=== PATIENT | female | born 1975 | race Two or more races ===

== ENCOUNTER 2017-10-31 13:39 | Outpatient (CLI) | payer OTHER | END 2017-10-31 13:46 | disposition home or self-care (01) | LOC: LAB 13:39 | DX: R10.9 Unspecified abdominal pain (principal); R82.79 Other abnormal findings on microbiological examination of urine ==

== ENCOUNTER → 2017-10-31 | Outpatient (CLI) | payer OTHER | END | disposition home or self-care (01) | LOC: PPHC 12:03 | DX: R10.32 Left lower quadrant pain (principal) ==

== ENCOUNTER 2017-12-02 13:34 | Outpatient (CLI) | payer OTHER | END 2017-12-02 13:40 | disposition home or self-care (01) | LOC: SONOGRAMA 13:34 | DX: R10.2 Pelvic and perineal pain (principal) ==

== ENCOUNTER 2017-12-23 05:30 | Day surgery (SDC) | payer OTHER | END 2017-12-23 12:40 | disposition home or self-care (01) | LOC: CIR.AMB 05:30 | DX: N84.0 Polyp of corpus uteri (principal) ==

== ENCOUNTER 2018-01-31 14:25 | Outpatient (CLI) | payer OTHER | END 2018-01-31 14:43 | disposition home or self-care (01) | LOC: RAD 14:25 | DX: M54.2 Cervicalgia (principal) ==

== ENCOUNTER 2019-06-04 11:27 | Outpatient (CLI) | payer OTHER | END 2019-06-04 11:31 | disposition home or self-care (01) | LOC: LAB 11:27 | DX: J11.1 Influenza due to unidentified influenza virus with other respiratory manifestations (principal); J20.0 Acute bronchitis due to Mycoplasma pneumoniae ==

== ENCOUNTER 2019-09-25 09:52 | Outpatient (CLI) | payer OTHER | END 2019-09-25 10:32 | disposition home or self-care (01) | LOC: LAB 09:52 | DX: E78.49 Other hyperlipidemia (principal); E55.9 Vitamin D deficiency, unspecified; Z00.00 Encounter for general adult medical examination without abnormal findings; N39.0 Urinary tract infection, site not specified; R42 Dizziness and giddiness ==

== ENCOUNTER 2019-09-26 11:29 | Outpatient (CLI) | payer OTHER | END 2019-09-26 11:32 | disposition home or self-care (01) | LOC: MAMO-SONO 11:29 | DX: Z12.31 Encounter for screening mammogram for malignant neoplasm of breast (principal); Z87.898 Personal history of other specified conditions; N64.4 Mastodynia ==

== ENCOUNTER 2019-09-27 15:35 | Outpatient (CLI) | payer OTHER | END 2019-09-27 15:38 | disposition home or self-care (01) | LOC: SONOGRAMA 15:35 | DX: N39.0 Urinary tract infection, site not specified (principal); N20.0 Calculus of kidney; M54.5 Low back pain ==

== ENCOUNTER → 2019-12-24 | Outpatient (CLI) | payer OTHER | END | disposition home or self-care (01) | LOC: TOM 13:59 | PROVIDERS: ATTEND General Practice | DX: R10.2 Pelvic and perineal pain (principal); R10.30 Lower abdominal pain, unspecified ==

== ENCOUNTER → 2019-12-26 07:18 | Outpatient (CLI) | payer OTHER | END | disposition home or self-care (01) | LOC: LAB 07:18 | PROVIDERS: ATTEND General Practice | DX: R10.30 Lower abdominal pain, unspecified (principal); R10.2 Pelvic and perineal pain; Z13.6 Encounter for screening for cardiovascular disorders; Z00.8 Encounter for other general examination ==

== ENCOUNTER → 2019-12-26 | Outpatient (CLI) | payer OTHER | END | disposition home or self-care (01) | LOC: RAD 07:37 | PROVIDERS: ATTEND General Practice | DX: M46.47 Discitis, unspecified, lumbosacral region (principal) ==

== ENCOUNTER → 2019-12-27 | Outpatient (CLI) | payer OTHER | END | disposition home or self-care (01) | LOC: MRI 08:05 | PROVIDERS: ATTEND Internal Medicine Cardiovascular Disease | DX: M46.47 Discitis, unspecified, lumbosacral region (principal) | CPT/HCPCS: 72148 ==

== ENCOUNTER 2020-04-10 | Outpatient (CLI) | payer OTHER | END 2020-04-10 00:01 | disposition home or self-care (01) | LOC: PPH VACUNA | DX: Z23 Encounter for immunization (principal) ==

== ENCOUNTER 2020-04-21 10:51 | Outpatient (CLI) | payer OTHER | END 2020-04-21 10:56 | disposition home or self-care (01) | LOC: LAB 10:51 | PROVIDERS: ATTEND Internal Medicine Cardiovascular Disease | DX: E03.8 Other specified hypothyroidism (principal); I10 Essential (primary) hypertension; E78.2 Mixed hyperlipidemia; E11.9 Type 2 diabetes mellitus without complications ==

== ENCOUNTER → 2020-04-21 | Outpatient (CLI) | payer OTHER | END | disposition home or self-care (01) | LOC: TOM 11:21 | PROVIDERS: ATTEND Internal Medicine Cardiovascular Disease | DX: R51.0 Headache with orthostatic component, not elsewhere classified (principal); I10 Essential (primary) hypertension ==

== ENCOUNTER 2020-06-25 08:00 | Inpatient (IN) | payer OTHER ==
[~2020-06-25] VITALS: Ht 167.6 cm; Wt 85.7 kg
== END 2020-07-03 15:39 | disposition home or self-care (01) | DRG 743 ==
LOC: SURH 07-02 08:00 → OB/GYN 07-02 11:13 → O/R 07-02 11:13 → SURH 07-02 12:00 → OB/GYN 07-02 17:27
PROVIDERS: ADMIT Obstetrics & Gynecology; ATTEND Obstetrics & Gynecology
PROC: 0UT24ZZ Resection of Bilateral Ovaries, Percutaneous Endoscopic Approach (ICD-10-PCS; 2020-07-02)
PROC: 0UB74ZZ Excision of Bilateral Fallopian Tubes, Percutaneous Endoscopic Approach (ICD-10-PCS; 2020-07-02)
PROC: 0UT94ZZ Resection of Uterus, Percutaneous Endoscopic Approach (ICD-10-PCS; principal; 2020-07-02 12:00)
DX: N72 Inflammatory disease of cervix uteri (principal); N83.11 Corpus luteum cyst of right ovary; N83.8 Other noninflammatory disorders of ovary, fallopian tube and broad ligament; N84.0 Polyp of corpus uteri

== ENCOUNTER 2021-04-21 08:00 | Outpatient (CLI) | payer OTHER | END 2021-04-21 08:30 | disposition home or self-care (01) | LOC: PPH VACUNA 08:00 | PROVIDERS: ATTEND Emergency Medicine Pediatric Emergency Medicine | DX: Z23 Encounter for immunization (principal) ==

== ENCOUNTER 2021-06-19 11:29 | Outpatient (CLI) | payer OTHER | END 2021-06-19 11:39 | disposition home or self-care (01) | LOC: MRI 11:29 | PROVIDERS: ATTEND General Practice | DX: G44.89 Other headache syndrome (principal); R03.0 Elevated blood-pressure reading, without diagnosis of hypertension | CPT/HCPCS: 70552 ==

== ENCOUNTER 2021-08-11 08:00 | Outpatient (CLI) | payer OTHER | END 2021-08-11 08:30 | disposition home or self-care (01) | LOC: PPH VACUNA 08:00 | PROVIDERS: ATTEND Emergency Medicine Pediatric Emergency Medicine | DX: Z23 Encounter for immunization (principal) ==

== ENCOUNTER 2021-11-20 10:29 | Outpatient (CLI) | payer OTHER | END 2021-11-20 10:32 | disposition home or self-care (01) | LOC: LAB 10:29 | DX: U07.1 COVID-19 (principal) ==

== ENCOUNTER 2021-12-31 06:49 | Outpatient (CLI) | payer OTHER | END 2021-12-31 06:52 | disposition home or self-care (01) | LOC: LAB 06:49 | DX: I11.9 Hypertensive heart disease without heart failure (principal); D50.9 Iron deficiency anemia, unspecified; E78.5 Hyperlipidemia, unspecified; N39.0 Urinary tract infection, site not specified; E03.9 Hypothyroidism, unspecified; E55.9 Vitamin D deficiency, unspecified; R73.9 Hyperglycemia, unspecified; Z12.11 Encounter for screening for malignant neoplasm of colon ==

== ENCOUNTER 2021-12-31 07:45 | Outpatient (CLI) | payer OTHER | END 2021-12-31 07:53 | disposition home or self-care (01) | LOC: SONOGRAMA 07:45 | DX: R10.10 Upper abdominal pain, unspecified (principal); R10.2 Pelvic and perineal pain ==

== ENCOUNTER 2022-04-07 15:07 | Outpatient (CLI) | payer OTHER | END 2022-04-07 15:12 | disposition home or self-care (01) | LOC: PPH VACUNA 15:07 | PROVIDERS: ATTEND Emergency Medicine Pediatric Emergency Medicine | DX: Z23 Encounter for immunization (principal) ==

== ENCOUNTER 2022-06-22 06:39 | Outpatient (CLI) | payer OTHER | END 2022-06-22 06:52 | disposition home or self-care (01) | LOC: LAB 06:39 | PROVIDERS: ATTEND Internal Medicine Cardiovascular Disease | DX: I10 Essential (primary) hypertension (principal); E11.9 Type 2 diabetes mellitus without complications; E03.9 Hypothyroidism, unspecified; E78.2 Mixed hyperlipidemia; E55.9 Vitamin D deficiency, unspecified; N39.0 Urinary tract infection, site not specified ==

== ENCOUNTER 2022-07-13 06:45 | Outpatient (CLI) | payer OTHER | END 2022-07-13 06:47 | disposition home or self-care (01) | LOC: LAB 06:45 | PROVIDERS: ATTEND Obstetrics & Gynecology | DX: N97.0 Female infertility associated with anovulation (principal) ==

== ENCOUNTER 2022-07-14 13:07 | Outpatient (CLI) | payer OTHER | END 2022-07-14 13:26 | disposition home or self-care (01) | LOC: MAMO-SONO 13:07 | PROVIDERS: ATTEND Obstetrics & Gynecology | DX: N63.21 Unspecified lump in the left breast, upper outer quadrant (principal) ==

== ENCOUNTER → 2022-09-08 06:31 | Outpatient (CLI) | payer OTHER | END | disposition home or self-care (01) | LOC: LAB 06:31 | DX: I11.9 Hypertensive heart disease without heart failure (principal); R73.9 Hyperglycemia, unspecified; E55.9 Vitamin D deficiency, unspecified; E78.5 Hyperlipidemia, unspecified; Z12.11 Encounter for screening for malignant neoplasm of colon; E03.9 Hypothyroidism, unspecified; N39.0 Urinary tract infection, site not specified; D50.9 Iron deficiency anemia, unspecified ==

== ENCOUNTER 2022-09-09 06:54 | Outpatient (CLI) | payer OTHER | END 2022-09-09 06:56 | disposition home or self-care (01) | LOC: LAB 06:54 | PROVIDERS: ATTEND Internal Medicine Cardiovascular Disease | DX: E03.9 Hypothyroidism, unspecified (principal); M19.90 Unspecified osteoarthritis, unspecified site ==

== ENCOUNTER 2022-09-10 13:43 | Outpatient (CLI) | payer OTHER | END 2022-09-10 13:44 | disposition home or self-care (01) | LOC: LAB 13:43 | DX: I11.9 Hypertensive heart disease without heart failure (principal); R73.9 Hyperglycemia, unspecified; E55.9 Vitamin D deficiency, unspecified; E78.5 Hyperlipidemia, unspecified; Z12.11 Encounter for screening for malignant neoplasm of colon; E03.9 Hypothyroidism, unspecified; N39.0 Urinary tract infection, site not specified; D50.9 Iron deficiency anemia, unspecified ==

== ENCOUNTER 2022-10-05 06:37 | Outpatient (CLI) | payer OTHER | END 2022-10-05 06:52 | disposition home or self-care (01) | LOC: LAB 06:37 | PROVIDERS: ATTEND Neuromusculoskeletal Medicine & OMM | DX: R41.89 Other symptoms and signs involving cognitive functions and awareness (principal); R41.3 Other amnesia; E03.9 Hypothyroidism, unspecified; F03.90 Unspecified dementia, unspecified severity, without behavioral disturbance, psychotic disturbance, mood disturbance, and anxiety; E78.1 Pure hyperglyceridemia; E78.00 Pure hypercholesterolemia, unspecified ==

== ENCOUNTER 2022-10-05 08:02 | Emergency (ER) | payer OTHER ==
[~2022-10-05] VITALS: Ht 167.6 cm; Wt 93.0 kg
== END 2022-10-05 11:47 | disposition home or self-care (01) ==
LOC: ER 08:02
DX: J32.8 Other chronic sinusitis (principal); R51.9 Headache, unspecified; Z20.822 Contact with and (suspected) exposure to COVID-19

== ENCOUNTER 2023-09-20 07:32 | Outpatient (CLI) | payer OTHER ==
[~2023-09-20 07:32] MED LIST: ALBUTEROL0.63 MG/3 IH; NEURONTIN300 MG; TUSNEL LIQUID178 ML PO; ZITHROMAX500 MG PO; ZYRTEC10 M3 PO
== END 2023-09-20 07:40 | disposition home or self-care (01) ==
LOC: PPH VACUNA 07:32
PROVIDERS: ATTEND Emergency Medicine Pediatric Emergency Medicine
DX: Z23 Encounter for immunization (principal)

== ENCOUNTER 2024-04-20 02:47 | Outpatient (CLI) | payer OTHER | END 2024-04-20 03:00 | disposition home or self-care (01) | LOC: PPH VACUNA 02:47 | PROVIDERS: ATTEND Emergency Medicine Pediatric Emergency Medicine | DX: Z23 Encounter for immunization (principal) ==

== ENCOUNTER → 2025-01-02 15:28 | Outpatient (CLI) | payer OTHER ==
[2025-01-04 07:07] LABS: HEPATITIS A ANTIBODY IGG Negative (Negative); HEPATITIS B SURFACE ANTIBODY Reactive (.); HEPATITIS C VIRUS ANTIBODY Non Reactive (Non Reactive)
== END | disposition home or self-care (01) ==
LOC: LAB 15:28
DX: A64 Unspecified sexually transmitted disease (principal); B19.9 Unspecified viral hepatitis without hepatic coma